=== PATIENT | male | born 1955 ===

== ENCOUNTER 2021-09-18 09:39 | Observation (INO) | payer MEDICARE, OTHER ==
[2021-09-16 12:15] LABS: Hemoglobin 14.8 gm/dl (11.8-15.2); Mean Corpuscular HGB Conc 34 % (32-34); Mean Corpuscular Volume 93 fl (84-94); Platelet Count 302 K/mm3 (140-440); Red Blood Count 4.63 M/mm3 (3.65-5.03); Red Cell Distribution Width 14.2 % (13.2-15.2)
[2021-09-16 12:29] LABS: Alanine Aminotransferase 22 units/L (7-56); Albumin 4.5 g/dL (3.9-5); Blood Urea Nitrogen 7 mg/dL (9-20); Calcium 9.8 mg/dL (8.4-10.2); Hemolysis Index 3
[2021-09-16 12:56] LABS: BUN/Creatinine Ratio 12
[~2021-09-18 09:39] MED LIST: ACETAMINOPHEN 500 MG TAB PO SCH; ALBUTEROL 2.5 MG/3 ML NEBU IH PRN; LACTATED RINGERS 1,000 ML IV SCH
[2021-09-18] MEDS ORDERED: HYDROmorphone 1 MG/1 ML INJ IV PRN (09:53)
[2021-09-18] MEDS ORDERED: ONDANSETRON 4 MG/2 ML INJ IV PRN ×2 (10:00→15:22)
[2021-09-18] MEDS ORDERED: NEOMY 40 MG/POLYMYXIN B 200,000 UNITS/ML (GU) AMPULE IR ONE ×3 (10:19→14:05)
--- NOTE | 2021-09-18 10:25 | Anesthesia Consultation ---
Anesthesia Consult and Med Hx Date of service: 09/18/21 - Airway Anesthetic Teeth Evaluation: Good ROM Head & Neck: Adequate Mental/Hyoid Distance: Adequate Mallampati Class: Class III Intubation Access Assessment: Possibly Difficult - Pulmonary Exam CTA: No (mild bibasilar expiratory wheezing) - Pre-Operative Health Status ASA Pre-Surgery Classification: ASA3 Proposed Anesthetic Plan: General - Pulmonary Hx Smoking: Yes (1 / PPD X 45 YRS; did not smoke today) Hx Respiratory Symptoms: No Home Oxygen Therapy: No Hx Sleep Apnea: No (ANA MARÍA PRE SCREEN LOW RISK) - Cardiovascular System Hx Hypertension: No Hx Coronary Artery Disease: Yes (took ranexa this morning) Hx Heart Attack/AMI: No Hx Percutaneous Transluminal Coronary Angioplasty (PTCA): Yes (02/2021; off ASA/plavix x6 days) Hx Cardia Arrhythmia: No Hx Peripheral Vascular Disease: Yes (b/l LE) - Central Nervous System Hx Neuromuscular Disorder: No (RLS) CVA: No - Gastrointestinal Hx Gastroesophageal Reflux Disease: Yes (took omeprazole this morning) - Endocrine Hx Renal Disease: No Hx Liver Disease: No Hx Insulin Dependent Diabetes: No Hx Non-Insulin Dependent Diabetes: No Hx Thyroid Disease: No - Additional Comments Anesthesia Medical History Comments: No hx anesthetic complications. Had preop cardiac eval 07/2021. No signs/symptoms decompensation today.
--- NOTE | 2021-09-18 10:26 | Anesthesia Day of Surgery ---
Anesthesia Day of Surgery - Day of Surgery Patient Examined: Yes Patient H&P Reviewed: Yes Patient is NPO: Yes Cardiac Clearance: Yes
[2021-09-18] MEDS ORDERED: ALBUTEROL 2.5 MG/3 ML NEBU IH ONE ×2 (10:45→15:45)
[2021-09-18] MEDS: MIDAZOLAM 2 MG/2 ML INJ IV NR ×2 (11:15→12:04)
[2021-09-18] MEDS ORDERED: propofoL 200 MG/20 ML VIAL IV ONE (11:46)
[2021-09-18] MEDS ORDERED: HYDROmorphone 1 MG/1 ML INJ ONE (11:46)
[2021-09-18] MEDS ORDERED: LIDOCAINE MPF (2%) 20 MG/1 ML VIAL 5 ML ONE (11:46)
[2021-09-18] MEDS ORDERED: ceFAZolin/Water 2 GM/20 ML 2 GM/20 ML SYRINGE IV ONE (12:01)
[2021-09-18] MEDS ORDERED: PHENYLEPHRINE/NS 1,000 MCG/10 ML SYRINGE (OR USE) IV ONE (12:18)
[2021-09-18] MEDS ORDERED: GENTAMICIN 160 MG in SODIUM CHLORIDE 0.9% 100 ML IV ONE (12:30)
[2021-09-18] MEDS ORDERED: ceFAZolin/STERILE WATER 2 GM/20 ML SYRINGE IV NR (13:00)
[2021-09-18] MEDS ORDERED: SODIUM CHLORIDE 0.9% IRR 1,500 ML BOTTLE IR ONE (13:13)
[2021-09-18] MEDS ORDERED: LACTATED RINGERS 1,000 ML ONE (14:35)
[2021-09-18] MEDS ORDERED: ACETAMINOPHEN 325 MG TAB PO PRN (15:16)
[2021-09-18] MEDS ORDERED: oxyCODONE /ACETAMINOPHEN 5-325MG TAB PO PRN (15:16)
--- NOTE | 2021-09-18 15:16 | Post Operative Note ---
Date of procedure: 09/18/21 Pre-op diagnosis: plastic repain p/s and insetion pi Post-op diagnosis: same Findings: severe peno scrotal tranposition small phallus Procedure: see above Anesthesia: GETA Surgeon: RAHEEM VERMA Estimated blood loss: minimal Pathology: none Condition: stable Disposition: PACU
[2021-09-18] MEDS ORDERED: ZOLPIDEM 5 MG TAB PO PRN (15:21)
[2021-09-18] MEDS: HYDROmorphone 1 MG/1 ML INJ IV PRN ×4 (15:21→15:51)
[2021-09-18] MEDS ORDERED: D5W/0.45% NACL/KCL 20 MEQ 20 MEQ/1,000 ML BAG IV SCH (16:00)
--- NOTE | 2021-09-18 16:41 | Post Anesthesia Evaluation ---
- Post Anesthesia Evaluation Patient Participated: Yes Airway Patent: Yes Stable Respiratory Function: Yes Nausea/Vomiting: No Temp > 96.8F: Yes Pain Manageable: Yes Adequeate Hydration: Yes Anesthesia Complications: No
--- NOTE | 2021-09-18 19:34 | Operative Report ---
DATE OF SURGERY: 09/18/2021 PREOPERATIVE DIAGNOSES: Severe erectile dysfunction, severe vascular disease, smoker. POSTOPERATIVE DIAGNOSES: Severe erectile dysfunction, severe vascular disease, smoker. PROCEDURES: Penoscrotal transposition repair, plastic repair with release of band and attempted insertion of Ambicor prosthesis with insertion of malleable prosthesis. SURGEON: Sylvester Hernandes MD ANESTHESIA: General. FINDINGS: This is a gentleman with a short and narrow phallus. We had last seen him at the end of the year. Finally got him approved for prosthesis. He has a significant penoscrotal transposition, which we discussed with him and he also knows that it was unlikely that we got put in a 3-piece because of the increased complications from his severe heart disease. DESCRIPTION OF PROCEDURE: The patient was brought to the operating room and placed on the operating room table. Following induction of anesthesia, placed in supine position, prepped and draped in usual sterile fashion. A full scrub and prep was carried out. A transverse incision for Y-V plasty of the scrotum was carried out through this transposition. It was carried down to both corpora without difficulty. There was no bleeding. Any small vessel was cauterized. Stay sutures were placed on both sides without any difficulty. Corporotomies were made on each side with easily dilatation. It was 16.5 on one side and 17 on the other. Right was 17, 16.5 on the left. We tried the smallest Ambicor. We were able to get it in, but we could not close the corporotomies despite dilating on each side to over 13. There was a prominent pelvic arch, and there was not enough corpora to close over these cylinders. The other option was to place a 3-piece, which I thought was increased risk for him, so we placed a malleable. We opened the corpora on both sides to try to get the Ambicor in, so they were opened and we opened it just a little more with the malleable and throughout the procedure, we irrigated with antibiotic solution. There was a minimal bleeding from each corpora because of his vascular disease. Corporotomies were closed with 3-0 Vicryl, superficial fascia and skin closed in a longitudinal way once we had to excise a little bit skin to give him about 2-3 more centimeters of length of his penis. The patient tolerated the procedure well. A Mummy wrap was applied and he was brought to recovery room, minimal blood loss in stable condition. TID: [id number] RECEIPT: [id number] CARMEN/KYLE/CHRISTIE
[2021-09-18] MEDS ORDERED: hydrOXYzine HCL 10 MG TAB PO PRN (19:45)
[2021-09-18] MEDS ORDERED: NON-FORMULARY EACH (Rosuvastatin Calcium [Crestor] 40 MG Tablet) PO SCH (20:00)
[2021-09-18] MEDS: MORPHINE 4 MG/1 ML INJ IV PRN (20:01)
--- NOTE | 2021-09-18 21:13 | Consultation ---
History of Present Illness - Reason for Consult Consult date: 09/18/21 Medical management Requesting physician: RAHEEM VERMA - History of Present Illness S/p IPP Postop patient doing well. No complications. Patient has a history of GERD, hyperlipidemia, coronary artery disease Past History Past Medical History: CAD, hyperlipidemia Past Surgical History: Other (S/p IPP) Social history: lives with family, full code Family history: hypertension Medications and Allergies Allergies Allergy/AdvReac Type Severity Reaction Status Date / Time No Known Allergies Allergy Verified 09/10/21 16:37 Home Medications Medication Instructions Recorded Confirmed Last Taken Type Aspirin [[place] Aspirin EC] 81 mg PO DAILY 09/10/21 09/18/21 09/13/21 History Clopidogrel [Plavix] 75 mg PO QDAY 09/10/21 09/18/21 09/13/21 History Ezetimibe [Zetia] 10 mg PO DAILY 09/16/21 09/16/21 Unknown History Omeprazole 20 mg PO DAILY 09/16/21 09/16/21 09/18/21 History Pramipexole [Mirapex] 0.5 mg PO QHS 09/16/21 09/16/21 Unknown History Ranolazine [Ranexa] 1,000 mg PO BID 09/16/21 09/16/21 09/18/21 History Rosuvastatin Calcium [Crestor] 40 mg PO DAILY 09/16/21 09/16/21 Unknown History hydrOXYzine HCL [Atarax] 10 mg PO PRN PRN 09/16/21 09/16/21 09/18/21 History Active Meds: Active Medications Acetaminophen (Acetaminophen 325 Mg Tab) 650 mg PO Q4H PRN PRN Reason: Pain MILD(1-3)/Fever >100.5/CANTRELL Aspirin (Aspirin Ec 81 Mg Tab) 81 mg PO DAILY ADRIANNE Atorvastatin Calcium (Atorvastatin 40 Mg Tab) 80 mg PO QHS ADRIANNE Ezetimibe (Ezetimibe 10 Mg Tab) 10 mg PO DAILY ADRIANNE Hydroxyzine HCl (Hydroxyzine Hcl 10 Mg Tab) 10 mg PO QDAY PRN PRN Reason: Anxiety Lactated Ringer's (Lactated Ringers) 1,000 mls @ 100 mls/hr IV DIRECT ADRIANNE Stop: 09/18/21 23:59 Last Admin: 09/18/21 10:50 Dose: 100 mls/hr Potassium Chloride/Dextrose/Sod Cl (D5w/0.45% Nacl/Kcl 20 Meq) 20 meq in 1,000 mls @ 125 mls/hr IV DIRECT ADRIANNE Gentamicin Sulfate/Sodium Chloride (Gentamicin/Ns 80 Mg/100 Ml) 100 mls @ 200 mls/hr IV Q8H ADRIANNE; Protocol Stop: 09/19/21 04:59 Cefazolin Sodium (Ancef/Ns 1 Gm/50 Ml) 1 gm in 50 mls @ 100 mls/hr IV Q8H ADRIANNE; Protocol Stop: 09/19/21 20:29 Morphine Sulfate (Morphine 4 Mg/1 Ml Inj) 2 mg IV Q4H PRN PRN Reason: Pain , Severe (7-10) Last Admin: 09/18/21 20:01 Dose: 2 mg Ondansetron HCl (Ondansetron 4 Mg/2 Ml Inj) 4 mg IV ONCE PRN PRN Reason: Nausea And Vomiting Oxycodone/Acetaminophen (Oxycodone /Acetaminophen 5-325mg Tab) 1 tab PO Q6H PRN PRN Reason: Pain, Moderate (4-6) Pantoprazole Sodium (Pantoprazole 40 Mg Inj) 40 mg IV QDAY ADRIANNE Pramipexole Dihydrochloride (Pramipexole 0.5 Mg Tab) 0.5 mg PO QHS ADRIANNE Ranolazine (Ranolazine Er 500 Mg Tab 12hr) 1,000 mg PO BID ADRIANNE Zolpidem Tartrate (Zolpidem 5 Mg Tab) 5 mg PO QHS PRN PRN Reason: Sleep Review of Systems All systems: negative Exam - Constitutional Vitals: Temp Pulse Resp BP Pulse Ox 97 F L 61 14 140/61 98 09/18/21 15:11 09/18/21 16:15 09/18/21 16:15 09/18/21 16:15 09/18/21 16:15 General appearance: Present: no acute distress, well-nourished - EENT Eyes: Present: PERRL ENT: hearing intact, clear oral mucosa - Neck Neck: Present: supple, normal ROM - Respiratory Respiratory effort: normal Respiratory: bilateral: CTA - Cardiovascular Heart rate: 78 Rhythm: regular Heart Sounds: Present: S1 & S2. Absent: rub, click - Extremities Extremities: pulses symmetrical, No edema Peripheral Pulses: within normal limits - Abdominal General gastrointestinal: Present: soft, non-tender, non-distended, normal bowel sounds Male genitourinary: Present: normal - Integumentary Integumentary: Present: clear, warm, dry - Musculoskeletal Musculoskeletal: gait normal, strength equal bilaterally - Psychiatric Psychiatric: appropriate mood/affect, intact judgment & insight - Neurologic Neurologic: CNII-XII intact, moves all extremities Results - Labs CBC & Chem 7: 09/16/21 00:01 09/16/21 00:01 Assessment and Plan - Patient Problems (1) Status post surgery Current Visit: Yes Status: Acute Plan to address problem: Patient had IPP Postop patient doing well (2) Hyperlipidemia Current Visit: Yes Status: Chronic Qualifiers: Hyperlipidemia type: mixed hyperlipidemia Qualified Code(s): E78.2 - Mixed hyperlipidemia Plan to address problem: Continue statins (3) Coronary artery disease Current Visit: Yes Status: Chronic Qualifiers: Coronary Disease-Associated Artery/Lesion type: [place] artery [place] vs. transplanted heart: [place] heart Plan to address problem: Continue Plavix (4) GERD (gastroesophageal reflux disease) Current Visit: Yes Status: Chronic Qualifiers: Esophagitis presence: without esophagitis Qualified Code(s): K21.9 - Gastro-esophageal reflux disease without esophagitis Plan to address problem: Continue PPI (5) DVT prophylaxis Current Visit: Yes Status: Acute Plan to address problem: SCDs and GI prophylaxis
[2021-09-18] MEDS ORDERED: RANOLAZINE 1000 MG PO SCH (22:00)
[2021-09-18] MEDS ORDERED: PRAMIPEXOLE 0.5 MG TAB PO SCH (22:00)
[2021-09-18] MEDS: RANOLAZINE ER 500 MG TAB 12HR PO SCH (22:09)
[2021-09-18] MEDS: ASPIRIN EC 81 MG TAB PO SCH (22:17)
[2021-09-18] MEDS: ceFAZolin/NS 1 GM/50 ML 1 GM/50 ML BAG IV SCH (22:27)
[2021-09-18] MEDS: GENTAMICIN/NS 80 MG/100 ML 100 ML IV SCH (22:28)
[2021-09-19] MEDS: ceFAZolin/NS 1 GM/50 ML 1 GM/50 ML BAG IV SCH (04:47)
[2021-09-19] MEDS: GENTAMICIN/NS 80 MG/100 ML 100 ML IV SCH (04:47)
[2021-09-19 04:59] VITALS: BP 118/65
[2021-09-19] MEDS: MORPHINE 4 MG/1 ML INJ IV PRN (05:41)
--- NOTE | 2021-09-19 08:34 | Short Stay Summary ---
Short Stay Documentation Date of service: 09/18/21 - History H&P: obtained from office Past Medical History: CAD, hyperlipidemia Past Surgical History: Other (S/p IPP) Social history: lives with family, full code - Allergies and Medications Current Medications: Allergies No Known Allergies Allergy (Verified 09/10/21 16:37) Home Medications Medication Instructions Recorded Confirmed Last Taken Type Aspirin [[place] Aspirin EC] 81 mg PO DAILY 09/10/21 09/18/21 09/13/21 History Clopidogrel [Plavix] 75 mg PO QDAY 09/10/21 09/18/21 09/13/21 History Ezetimibe [Zetia] 10 mg PO DAILY 09/16/21 09/16/21 Unknown History Omeprazole 20 mg PO DAILY 09/16/21 09/16/21 09/18/21 History Pramipexole [Mirapex] 0.5 mg PO QHS 09/16/21 09/16/21 Unknown History Ranolazine [Ranexa] 1,000 mg PO BID 09/16/21 09/16/21 09/18/21 History Rosuvastatin Calcium [Crestor] 40 mg PO DAILY 09/16/21 09/16/21 Unknown History hydrOXYzine HCL [Atarax] 10 mg PO PRN PRN 09/16/21 09/16/21 09/18/21 History Active Medications Acetaminophen (Acetaminophen 325 Mg Tab) 650 mg PO Q4H PRN PRN Reason: Pain MILD(1-3)/Fever >100.5/CANTRELL Aspirin (Aspirin Ec 81 Mg Tab) 81 mg PO DAILY [facility] Last Admin: 09/18/21 22:17 Dose: 81 mg Atorvastatin Calcium (Atorvastatin 40 Mg Tab) 80 mg PO QHS [facility] Last Admin: 09/18/21 22:16 Dose: 80 mg Ezetimibe (Ezetimibe 10 Mg Tab) 10 mg PO DAILY [facility] Hydroxyzine HCl (Hydroxyzine Hcl 10 Mg Tab) 10 mg PO QDAY PRN PRN Reason: Anxiety Last Admin: 09/18/21 22:08 Dose: 10 mg Potassium Chloride/Dextrose/Sod Cl (D5w/0.45% Nacl/Kcl 20 Meq) 20 meq in 1,000 mls @ 125 mls/hr IV DIRECT ADRIANNE Last Admin: 09/18/21 22:29 Dose: 125 mls/hr Cefazolin Sodium (Ancef/Ns 1 Gm/50 Ml) 1 gm in 50 mls @ 100 mls/hr IV Q8H [facility]; Protocol Stop: 09/19/21 20:29 Last Admin: 09/19/21 04:47 Dose: 100 mls/hr Morphine Sulfate (Morphine 4 Mg/1 Ml Inj) 2 mg IV Q4H PRN PRN Reason: Pain , Severe (7-10) Last Admin: 09/19/21 05:41 Dose: 2 mg Ondansetron HCl (Ondansetron 4 Mg/2 Ml Inj) 4 mg IV ONCE PRN PRN Reason: Nausea And Vomiting Oxycodone/Acetaminophen (Oxycodone /Acetaminophen 5-325mg Tab) 1 tab PO Q6H PRN PRN Reason: Pain, Moderate (4-6) Pantoprazole Sodium (Pantoprazole 40 Mg Inj) 40 mg IV QDAY [facility] Pramipexole Dihydrochloride (Pramipexole 0.5 Mg Tab) 0.5 mg PO QHS [facility] Last Admin: 09/18/21 22:17 Dose: 0.5 mg Ranolazine (Ranolazine Er 500 Mg Tab 12hr) 1,000 mg PO BID [facility] Last Admin: 09/18/21 22:09 Dose: 1,000 mg Zolpidem Tartrate (Zolpidem 5 Mg Tab) 5 mg PO QHS PRN PRN Reason: Sleep - Physical exam Extremities: pulses symmetrical, No edema - Brief post op/procedure progress note Date of procedure: 09/19/21 Pre-op diagnosis: ed Post-op diagnosis: same Procedure: ipp Anesthesia: GETA Surgeon: RAHEEM VERMA Estimated blood loss: 50-100ml Pathology: none Condition: stable - Hospital course Hospital course: no issues removed donovan & wrap home after voids - Disposition Condition at discharge: Stable Disposition: 01 HOME / SELF CARE / HOMELESS Short Stay Discharge Plan Follow up with: WINIFRED MENA [Other] - 7 Days
[2021-09-19] MEDS: RANOLAZINE ER 500 MG TAB 12HR PO SCH (09:08)
[2021-09-19] MEDS ORDERED: NON-FORMULARY EACH (Omeprazole [Omeprazole] 20 MG Capsule.Dr) PO SCH (10:00)
[2021-09-19] MEDS ORDERED: PANTOPRAZOLE 40 MG INJ IV SCH (10:00)
[2021-09-19] MEDS ORDERED: EZETIMIBE 10 MG TAB PO SCH (10:00)
--- NOTE | 2021-09-19 10:05 | Progress Note ---
Hospitalist Physical - Constitutional Vitals: Temp Pulse Resp BP Pulse Ox 99.2 F 71 18 118/65 96 09/19/21 04:16 09/19/21 04:16 09/19/21 04:16 09/19/21 04:16 09/19/21 04:16 General appearance: Present: no acute distress, well-nourished Results - Labs CBC & Chem 7: 09/16/21 00:01 09/16/21 00:01 Labs: Laboratory Last Values WBC 11.0 K/mm3 (4.5-11.0) 09/16/21 00:01 RBC 4.63 M/mm3 (3.65-5.03) 09/16/21 00:01 Hgb 14.8 gm/dl (11.8-15.2) 09/16/21 00:01 Hct 43.0 % (35.5-45.6) 09/16/21 00:01 MCV 93 fl (84-94) 09/16/21 00:01 MCH 32 pg (28-32) 09/16/21 00:01 MCHC 34 % (32-34) 09/16/21 00:01 RDW 14.2 % (13.2-15.2) 09/16/21 00:01 Plt Count 302 K/mm3 (140-440) 09/16/21 00:01 Sodium 134 mmol/L (137-145) L 09/16/21 00:01 Potassium 4.6 mmol/L (3.6-5.0) 09/16/21 00:01 Chloride 95.6 mmol/L (98-107) L 09/16/21 00:01 Carbon Dioxide 26 mmol/L (22-30) 09/16/21 00:01 Anion Gap 17 mmol/L 09/16/21 00:01 BUN 7 mg/dL (9-20) L 09/16/21 00:01 Creatinine 0.6 mg/dL (0.8-1.3) L 09/16/21 00:01 Estimated GFR > 60 ml/min 09/16/21 00:01 BUN/Creatinine Ratio 12 % 09/16/21 00:01 Glucose 105 mg/dL (75-100) H 09/16/21 00:01 Calcium 9.8 mg/dL (8.4-10.2) 09/16/21 00:01 Total Bilirubin 0.70 mg/dL (0.1-1.2) 09/16/21 00:01 AST 30 units/L (5-40) 09/16/21 00:01 ALT 22 units/L (7-56) 09/16/21 00:01 Alkaline Phosphatase 66 units/L (35-129) 09/16/21 00:01 Total Protein 7.7 g/dL (6.3-8.2) 09/16/21 00:01 Albumin 4.5 g/dL (3.9-5) 09/16/21 00:01 Albumin/Globulin Ratio 1.4 % 09/16/21 00:01 SARS-CoV-2 (PCR) Negative (Negative) 09/16/21 12:00 [place]leton/IV: Voiding Method Indwelling Catheter Active Medications - Current Medications Current Medications: Generic Name Dose Route Start Last Admin Trade Name Freq PRN Reason Stop Dose Admin Acetaminophen 650 mg 09/18/21 15:16 Acetaminophen 325 Mg Tab PO Q4H PRN Pain MILD(1-3)/Fever >100.5/CANTRELL Aspirin 81 mg 09/18/21 20:00 09/18/21 22:17 Aspirin Ec 81 Mg Tab PO 81 mg DAILY ADRIANNE Administration Atorvastatin Calcium 80 mg 09/18/21 22:00 09/18/21 22:16 Atorvastatin 40 Mg Tab PO 80 mg QHS ADRIANNE Administration Ezetimibe 10 mg 09/19/21 10:00 09/19/21 09:05 Ezetimibe 10 Mg Tab PO 10 mg DAILY ADRIANNE Administration Hydroxyzine HCl 10 mg 09/18/21 19:45 09/18/21 22:08 Hydroxyzine Hcl 10 Mg Tab PO 10 mg QDAY PRN Administration Anxiety Potassium Chloride/Dextrose/Sod Cl 20 meq in 1,000 mls @ 125 mls/hr 09/18/21 16:00 09/18/21 22:29 D5w/0.45% Nacl/Kcl 20 Meq IV 125 mls/hr DIRECT ADRIANNE Administration Cefazolin Sodium 1 gm in 50 mls @ 100 mls/hr 09/18/21 20:00 09/19/21 04:47 Ancef/Ns 1 Gm/50 Ml IV 09/19/21 20:29 100 mls/hr Q8H ADRIANNE Administration Protocol Morphine Sulfate 2 mg 09/18/21 15:16 04/28/22 05:41 Morphine 4 Mg/1 Ml Inj IV 2 mg Q4H PRN Administration Pain , Severe (7-10) Ondansetron HCl 4 mg 09/18/21 15:22 Ondansetron 4 Mg/2 Ml Inj IV ONCE PRN Nausea And Vomiting Oxycodone/Acetaminophen 1 tab 09/18/21 15:16 Oxycodone /Acetaminophen 5-325mg Tab PO Q6H PRN Pain, Moderate (4-6) Pantoprazole Sodium 40 mg 09/19/21 10:00 09/19/21 09:05 Pantoprazole 40 Mg Inj IV 40 mg QDAY ADRIANNE Administration Pramipexole Dihydrochloride 0.5 mg 09/18/21 22:00 09/18/21 22:17 Pramipexole 0.5 Mg Tab PO 0.5 mg QHS ADRIANNE Administration Ranolazine 1,000 mg 09/18/21 22:00 09/19/21 09:08 Ranolazine Er 500 Mg Tab 12hr PO 1,000 mg BID ADRIANNE Administration Zolpidem Tartrate 5 mg 09/18/21 15:21 Zolpidem 5 Mg Tab PO QHS PRN Sleep
[2021-09-19] MEDS: ASPIRIN EC 81 MG TAB PO SCH (11:16)
[2021-09-20] MEDS ORDERED: PANTOPRAZOLE 40 MG TAB PO SCH (07:30)
== END 2021-09-19 11:33 | disposition home or self-care (01) ==
LOC: OR 09:39 → 3A 15:17
PROVIDERS: ADMIT Urology; ATTEND Urology
DX: N52.01 Erectile dysfunction due to arterial insufficiency (principal); Z20.822 Contact with and (suspected) exposure to COVID-19; I25.10 Atherosclerotic heart disease of native coronary artery without angina pectoris; E78.5 Hyperlipidemia, unspecified; K21.9 Gastro-esophageal reflux disease without esophagitis; Z79.899 Other long term (current) drug therapy; Z98.890 Other specified postprocedural states; Z79.82 Long term (current) use of aspirin
CPT/HCPCS: 36415; 54400; 55110; 80053; 85027; 96365; 96366; 96367; 96368; 96375; 96376; C1813; C2622; C9113; G0378; J0690; J1170; J1580; J2250; J2270; J2370; J2704; J3480; J3490; J7120; U0003